=== PATIENT | female | born 1955 | race Caucasian/White ===

== ENCOUNTER 2021-08-10 15:38 | Emergency (ER) | payer OTHER, MEDICARE, BC ==
[2021-08-10 15:56] VITALS: BP 150/82; PULSE 95
== END 2021-08-10 16:10 | disposition home or self-care (01) ==
LOC: JP.ED 15:38
DX: U07.1 COVID-19 (principal); Z87.09 Personal history of other diseases of the respiratory system
CPT/HCPCS: 99283

== ENCOUNTER 2022-10-16 10:10 | Emergency (ER) | payer MEDICARE, BC ==
[2022-10-16] MEDS ORDERED: Lidocaine 1% 5 ML VIAL INJECT ONE (11:17)
[2022-10-16 11:25] VITALS: BP 146/72; PULSE 68
== END 2022-10-16 12:07 | disposition home or self-care (01) ==
LOC: JP.ED 10:10
DX: S61.412A Laceration without foreign body of left hand, initial encounter (principal); I10 Essential (primary) hypertension; Z86.16 Personal history of COVID-19; Z79.899 Other long term (current) drug therapy; W26.8XXA Contact with other sharp object(s), not elsewhere classified, initial encounter
CPT/HCPCS: 99282